=== PATIENT | male | born 1950 | race Caucasian/White ===

== ENCOUNTER 2016-11-21 21:49 | Inpatient (IN) | payer OTHER, BC ==
[~2016-11-21] VITALS: Ht 172.7 cm; Wt 95.9 kg
[2016-11-21 22:31] LABS: BASOPHIL % 0.4 % (0-2); PLATELET COUNT 251 x10^3mcL (130-400); RED CELL DISTRIBUTION WIDTH 13.4 % (11.5-14.5)
[2016-11-21 22:41] LABS: CALCIUM 8.7 mg/dL (8.5-10.1); CARBON DIOXIDE 17.7 mmol/L (21-32); CREATININE SERUM 1.9 mg/dL (0.7-1.3); POTASSIUM SERUM 3.6 mmol/L (3.5-5.1)
[2016-11-21 22:49] LABS: ALBUMIN 3.4 g/dL (3.4-5.0); BILIRUBIN TOTAL 0.9 mg/dL (0.20-1.00); CHOLESTEROL/HDL RATIO 3.7; TOTAL PROTEIN, SERUM 6.2 g/dL (6.4-8.2)
[2016-11-21 22:54] LABS: T3 TOTAL 0.74 ng/mL
[2016-11-21 23:16] LABS: FREE T4 0.91 ng/dL (0.76-1.46)
[2016-11-21 23:26] LABS: FREE THYROXINE INDEX 1.7 ug/dL (1.4-4.5); T4(THYROXINE) 4.6 ug/dL (4.7-13.3)
[2016-11-22] VITALS (11 sets, daily range): BP systolic 98–149; BP diastolic 63–88; Ht 172.7 cm; Wt 95.9 kg
[2016-11-22 00:29] LABS: MAGNESIUM 3.5 mg/dL (1.8-2.4)
[2016-11-22 05:54] LABS: PLATELET COUNT 203 x10^3mcL (130-400); RED CELL DISTRIBUTION WIDTH 13.7 % (11.5-14.5)
[2016-11-22 06:04] LABS: BASOPHIL % 0 % (0-2)
[2016-11-22 06:11] LABS: CALCIUM 8.2 mg/dL (8.5-10.1); CARBON DIOXIDE 19.3 mmol/L (21-32); CREATININE SERUM 1.7 mg/dL (0.7-1.3); MAGNESIUM 2.5 mg/dL (1.8-2.4); PHOSPHOROUS 4.8 mg/dL (2.5-4.9); POTASSIUM SERUM 4.2 mmol/L (3.5-5.1)
[2016-11-22] MEDS ORDERED: LIPI10 PO (17:07)
[2016-11-22] MEDS ORDERED: CLOPIDOGREL75 M1 PO (17:07)
[2016-11-22] MEDS ORDERED: METOPROLOL TART25 M1 PO (17:08)
[2016-11-22] MEDS ORDERED: NIT0.4 SL (17:08)
[2016-11-22] MEDS ORDERED: ZES5 PO (17:09)
[2016-11-22] MEDS ORDERED: BAY PO (17:09)
[2016-11-22] MEDS ORDERED: APAP/HYDROCODON1 T13 PO (17:09)
[2016-11-22] MEDS ORDERED: TYL325 PO (17:10)
[2016-11-22] MEDS ORDERED: ZOFI IV (17:10)
[2016-11-22] MEDS ORDERED: MOR2I IV (17:10)
[2016-11-22] MEDS ORDERED: COL100UDC PO (17:11)
[2016-11-22] MEDS ORDERED: MECLIZINE HCL12.5 MG PO (17:11)
[2016-11-23 03:21] VITALS: BP 119/69
[2016-11-23] MEDS ORDERED: ZOS3PM IV (05:36)
[2016-11-23 07:23] VITALS: BP 111/63
[2016-11-23 08:35] VITALS: BP 119/69
== END 2016-11-23 09:29 | disposition short-term general hospital (02) | DRG 208 ==
LOC: ED 21:49 → IC 23:16
PROVIDERS: Internal Medicine Interventional Cardiology; Specialist; ADMIT Family Medicine Sports Medicine
PROC: 0BH17EZ Insertion of Endotracheal Airway into Trachea, Via Natural or Artificial Opening (ICD-10-PCS; 2016-11-22)
PROC: 5A2204Z Restoration of Cardiac Rhythm, Single (ICD-10-PCS; 2016-11-22)
PROC: 4A023N7 Measurement of Cardiac Sampling and Pressure, Left Heart, Percutaneous Approach (ICD-10-PCS; 2016-11-22)
PROC: B2111ZZ Fluoroscopy of Multiple Coronary Arteries using Low Osmolar Contrast (ICD-10-PCS; 2016-11-22)
PROC: B2151ZZ Fluoroscopy of Left Heart using Low Osmolar Contrast (ICD-10-PCS; 2016-11-22)
PROC: 5A1935Z Respiratory Ventilation, Less than 24 Consecutive Hours (ICD-10-PCS; principal; 2016-11-22 14:00)
DX: J96.00 Acute respiratory failure, unspecified whether with hypoxia or hypercapnia (principal); J69.0 Pneumonitis due to inhalation of food and vomit; N17.0 Acute kidney failure with tubular necrosis; K85.90 Acute pancreatitis without necrosis or infection, unspecified; I47.2 Ventricular tachycardia; I24.9 Acute ischemic heart disease, unspecified; R55 Syncope and collapse; E83.39 Other disorders of phosphorus metabolism; E83.41 Hypermagnesemia; E78.5 Hyperlipidemia, unspecified; E03.9 Hypothyroidism, unspecified; Z68.31 Body mass index [BMI] 31.0-31.9, adult
CPT/HCPCS: CLHCL; 36600; 83880; 84439; A4628; C1769; C1887; C1894; G0480; J0282; J0330; J1642; J1644; J2001; J2250; J2270; J2405; J2543; J2704; J3010; J3475; J3490; J7030; J7040; J7042; J7060; Q0092; Q9967